=== PATIENT | male | born 1970 | race Two or more races ===

== ENCOUNTER 2017-04-14 23:34 | Inpatient (IN) | payer MEDICAID ==
[~2017-04-14] VITALS: Ht 165.1 cm; Wt 54.5 kg
[~2017-04-14 23:34] MED LIST: LISI-600 PO
[2017-04-15] MEDS ORDERED: albuterol 2.5 MG/3 ML nebule NEB ONE (01:20)
[2017-04-15] MEDS ORDERED: methylPREDNISolone sod succ 125mg/2ml vial IV ONE (01:20)
[2017-04-15 01:46] LABS: BASOPHILS # (AUTO) 0.1 X10'3 (0-0.2); BASOPHILS % (AUTO) 1.4 % (0-1); EOSINOPHILS # (AUTO) 0.1 X10'3 (0-0.9); EOSINOPHILS % (AUTO) 1.3 % (0-6); HEMATOCRIT 35.5 % (42.0-52.0); HEMOGLOBIN 12.4 g/dl (14.0-17.9); LYMPHOCYTES # (AUTO) 1.9 X10'3 (1.1-4.8); LYMPHOCYTES % (AUTO) 36.6 % (21-51); MEAN CORPUSCULAR HEMOGLOBIN 31.7 PG (27.0-31.0); MEAN CORPUSCULAR HGB CONC 34.8 % (33.0-36.5); MEAN CORPUSCULAR VOLUME 91.2 FL (78-98); MEAN PLATELET VOLUME 7.5 FL (7.4-10.4); MONOCYTES # (AUTO) 0.6 X10'3 (0-0.9); MONOCYTES % (AUTO) 11.1 % (2-12); NEUTROPHILS # (AUTO) 2.6 X10'3 (1.8-7.7); NEUTROPHILS % (AUTO) 49.6 % (42-75); PLATELET COUNT 273 X10'3 (140-440); RED CELL DISTRIBUTION WIDTH 14.2 % (11.5-14.5); WHITE BLOOD COUNT 5.3 X10'3 (4.5-11.0)
[2017-04-15 02:00] LABS: ALANINE AMINOTRANSFERASE 122 U/L (12-78); ALBUMIN 3.1 G/DL (3.4-5.0); ALBUMIN/GLOBULIN RATIO 0.8 (1.1-1.5); ALKALINE PHOSPHATASE 124 IU/L (46-116); ANION GAP 11 (8-16); ASPARTATE AMINO TRANSFERASE 170 U/L (10-37); BILIRUBIN,TOTAL 1.2 MG/DL (0.1-1.0); BLOOD UREA NITROGEN 21 MG/DL (7-18); BUN/CREATININE RATIO 22.1 (5.4-32.0); CALCIUM 8.3 MG/DL (8.5-10.1); CHLORIDE 104 MMOL/L (99-107); CREATININE 0.95 MG/DL (0.60-1.10); GLUCOSE 89 MG/DL (70-104); POTASSIUM 3.7 MMOL/L (3.5-5.1); SODIUM 138 MMOL/L (135-145); TOTAL CARBON DIOXIDE 22.7 MMOL/L (24-32); TOTAL PROTEIN 7.1 G/DL (6.4-8.2); eGFR 86 ML/MIN
[2017-04-15] MEDS ORDERED: cefTRIAXone 1g/NS 100ml IVPB 100 ML IV ONE (02:15)
[2017-04-15] MEDS ORDERED: mag hydrox/Alum hydrox/simeth 30ml oral suspension PO PRN (02:20)
[2017-04-15] MEDS ORDERED: bisacodyl 10mg suppository rectal RC PRN (02:20)
[2017-04-15] MEDS ORDERED: magnesium hydroxide 30ml (MOM) UD suspension PO PRN (02:20)
[2017-04-15] MEDS ORDERED: diphenhydrAMINE 50 mg/ml inj IV PRN (02:20)
[2017-04-15] MEDS ORDERED: ondansetron/PF 4mg/2ml inj IV PRN (02:20)
[2017-04-15] MEDS ORDERED: metoclopramide 5 mg/ml inj IV PRN (02:20)
[2017-04-15] MEDS ORDERED: HYDROcodone/acetaminophen 10/325mg tab PO PRN (02:20)
[2017-04-15] MEDS ORDERED: acetaminophen 325mg tablet PO PRN ×2 (02:20)
[2017-04-15] MEDS ORDERED: morphine 2 MG/ML inj. syringe IV PRN ×2 (02:20)
[2017-04-15] MEDS ORDERED: acetaminophen 650mg rectal suppository RC PRN (02:20)
[2017-04-15] MEDS ORDERED: diphenhydrAMINE 25mg capsule PO PRN (02:20)
[2017-04-15] MEDS ORDERED: azithromycin 250mg tablet PO SCH (02:38)
[2017-04-15] MEDS: normal saline 1000ml 1,000 ML IV SCH ×2 (02:49→13:14)
[2017-04-15 02:55] LABS: INR 1.1 INR; PARTIAL THROMBOPLASTIN TIME 28 SECONDS (22-32); PROTHROMBIN TIME 11.4 SECONDS (9.0-12.0)
[2017-04-15] MEDS: cefTRIAXone 1g/NS 100ml IVPB 100 ML IV SCH ×3 (02:58→20:01)
[2017-04-15 03:04] LABS: PHOSPHORUS 3.7 MG/DL (2.3-4.5)
[2017-04-15] MEDS ORDERED: AMLO-94 PO (03:44)
[2017-04-15 03:46] LABS: URINE AMPHETAMINE SCREEN POSITIVE (Neg); URINE BARBITUATE SCREEN NEGATIVE (Neg); URINE BENZODIAZEPINES SCREEN NEGATIVE (Neg); URINE CANNABINOID SCREEN POSITIVE (Neg); URINE COCAINE SCREEN NEGATIVE (Neg); URINE METHADONE SCREEN NEGATIVE (Neg); URINE OPIATE SCREEN NEGATIVE (Neg); URINE PHENCYCLIDINE SCREEN NEGATIVE (Neg)
[2017-04-15] MEDS ORDERED: AMLO2.5T2 PO (03:47)
[2017-04-15] MEDS ORDERED: lactobacillus rhamnosus 10,000 MMU CELLS/CAPSULE PO SCH (07:30)
[2017-04-15] MEDS ORDERED: azithromycin/NS 500mg/250ml 250 ML IV SCH (08:00)
[2017-04-15 09:00] VITALS: BP 167/111
[2017-04-15] MEDS: heparin, porcine 5000 units/ml vial SQ SCH ×2 (09:51→20:08)
[2017-04-15] MEDS: docusate sod 100mg capsule PO SCH ×2 (09:52→20:08)
[2017-04-15] MEDS: pantoprazole 40mg Tablet.DR PO SCH (09:52)
[2017-04-15] MEDS: lactobacillus rhamnosus 10,000 MMU CELLS/CAPSULE PO SCH ×2 (09:52→16:33)
[2017-04-15] MEDS: lisinopril 20mg tablet PO SCH (09:52)
[2017-04-15] MEDS: HYDROcodone/acetaminophen 5mg/325mg tablet PO PRN ×2 (10:00→16:33)
[2017-04-15] MEDS ORDERED: pneumococcal 23-VAL P-sac vacc 25 mcg/0.5ml vial IMVAC ONE (14:15)
[2017-04-15 18:00] VITALS: BP_SYST 164; BP_SYST 191; BP_DIAS 107; BP_DIAS 84
[2017-04-15] MEDS ORDERED: amLODIPine 5mg tablet PO ONE (18:20)
[2017-04-15] MEDS ORDERED: hydrALAZINE 20mg/ml inj. IV PRN (18:20)
[2017-04-15] MEDS ORDERED: azithromycin/NS 500mg/250ml 250 ML IV ONE (19:00)
[2017-04-15] MEDS ORDERED: temazepam 15mg capsule PO PRN (21:00)
[2017-04-15 22:00] VITALS: BP 138/98
[2017-04-16] MEDS ORDERED: albuterol 2.5 MG/3 ML nebule ONE (00:30)
[2017-04-16] MEDS: albuterol 2.5 MG/3 ML nebule NEB PRN ×2 (00:33→14:23)
[2017-04-16] MEDS: normal saline 1000ml 1,000 ML IV SCH ×4 (00:45→23:57)
[2017-04-16 05:33] LABS: BASOPHILS # (AUTO) 0.1 X10'3 (0-0.2); BASOPHILS % (AUTO) 1.6 % (0-1); EOSINOPHILS # (AUTO) 0.1 X10'3 (0-0.9); EOSINOPHILS % (AUTO) 1.2 % (0-6); HEMATOCRIT 34.7 % (42.0-52.0); HEMOGLOBIN 12.1 g/dl (14.0-17.9); LYMPHOCYTES # (AUTO) 1.8 X10'3 (1.1-4.8); LYMPHOCYTES % (AUTO) 29.6 % (21-51); MEAN CORPUSCULAR HEMOGLOBIN 31.7 PG (27.0-31.0); MEAN CORPUSCULAR HGB CONC 34.8 % (33.0-36.5); MEAN CORPUSCULAR VOLUME 91.3 FL (78-98); MEAN PLATELET VOLUME 7.5 FL (7.4-10.4); MONOCYTES # (AUTO) 0.7 X10'3 (0-0.9); MONOCYTES % (AUTO) 11.4 % (2-12); NEUTROPHILS # (AUTO) 3.5 X10'3 (1.8-7.7); NEUTROPHILS % (AUTO) 56.2 % (42-75); PLATELET COUNT 251 X10'3 (140-440); RED CELL DISTRIBUTION WIDTH 14.9 % (11.5-14.5); WHITE BLOOD COUNT 6.2 X10'3 (4.5-11.0)
[2017-04-16] MEDS: HYDROcodone/acetaminophen 5mg/325mg tablet PO PRN ×3 (05:34→16:36)
[2017-04-16 06:00] VITALS: BP 160/103
[2017-04-16 06:26] LABS: ALANINE AMINOTRANSFERASE 87 U/L (12-78); ALBUMIN 3.1 G/DL (3.4-5.0); ALBUMIN/GLOBULIN RATIO 0.8 (1.1-1.5); ALKALINE PHOSPHATASE 102 IU/L (46-116); ANION GAP 10 (8-16); ASPARTATE AMINO TRANSFERASE 73 U/L (10-37); BILIRUBIN,TOTAL 0.8 MG/DL (0.1-1.0); BLOOD UREA NITROGEN 19 MG/DL (7-18); BUN/CREATININE RATIO 17.9 (5.4-32.0); CALCIUM 8.4 MG/DL (8.5-10.1); CHLORIDE 106 MMOL/L (99-107); CREATININE 1.06 MG/DL (0.60-1.10); GLUCOSE 88 MG/DL (70-104); POTASSIUM 3.8 MMOL/L (3.5-5.1); SODIUM 139 MMOL/L (135-145); eGFR 76 ML/MIN
[2017-04-16] MEDS ORDERED: amLODIPine 5mg tablet PO SCH (08:00)
[2017-04-16] MEDS: docusate sod 100mg capsule PO SCH ×2 (08:00→19:55)
[2017-04-16] MEDS: lactobacillus rhamnosus 10,000 MMU CELLS/CAPSULE PO SCH ×2 (08:13→16:34)
[2017-04-16] MEDS: pantoprazole 40mg Tablet.DR PO SCH (08:14)
[2017-04-16] MEDS: lisinopril 20mg tablet PO SCH (08:14)
[2017-04-16] MEDS: heparin, porcine 5000 units/ml vial SQ SCH ×2 (08:14→19:55)
[2017-04-16] MEDS: cefTRIAXone 1g/NS 100ml IVPB 100 ML IV SCH ×2 (08:15→19:55)
[2017-04-16] MEDS: amLODIPine 5mg tablet PO SCH (08:39)
[2017-04-16 10:38] VITALS: BP 162/104
[2017-04-16 11:00] VITALS: BP 155/103
[2017-04-16 11:45] VITALS: BP 151/101
[2017-04-16 18:00] VITALS: BP 151/101
[2017-04-16] MEDS: AZITHROMYCIN 500 MG in NS 250ml IV.SOLN IV SCH (20:46)
[2017-04-16 22:00] VITALS: BP 125/88
[2017-04-17 05:00] VITALS: BP 151/100
[2017-04-17 05:20] LABS: BASOPHILS # (AUTO) 0.1 X10'3 (0-0.2); BASOPHILS % (AUTO) 1.3 % (0-1); EOSINOPHILS # (AUTO) 0.2 X10'3 (0-0.9); EOSINOPHILS % (AUTO) 2.7 % (0-6); HEMATOCRIT 36.7 % (42.0-52.0); HEMOGLOBIN 12.7 g/dl (14.0-17.9); LYMPHOCYTES # (AUTO) 1.9 X10'3 (1.1-4.8); LYMPHOCYTES % (AUTO) 33.2 % (21-51); MEAN CORPUSCULAR HEMOGLOBIN 31.9 PG (27.0-31.0); MEAN CORPUSCULAR HGB CONC 34.6 % (33.0-36.5); MEAN CORPUSCULAR VOLUME 92.2 FL (78-98); MEAN PLATELET VOLUME 7.6 FL (7.4-10.4); MONOCYTES # (AUTO) 0.6 X10'3 (0-0.9); MONOCYTES % (AUTO) 9.8 % (2-12); NEUTROPHILS # (AUTO) 3.1 X10'3 (1.8-7.7); PLATELET COUNT 257 X10'3 (140-440); RED BLOOD COUNT 3.98 X10'6 (4.70-6.10); WHITE BLOOD COUNT 5.9 X10'3 (4.5-11.0)
[2017-04-17 06:02] LABS: ALANINE AMINOTRANSFERASE 85 U/L (12-78); ALBUMIN/GLOBULIN RATIO 0.7 (1.1-1.5); ALKALINE PHOSPHATASE 101 IU/L (46-116); ANION GAP 8 (8-16); ASPARTATE AMINO TRANSFERASE 57 U/L (10-37); BILIRUBIN,TOTAL 0.5 MG/DL (0.1-1.0); BLOOD UREA NITROGEN 20 MG/DL (7-18); BUN/CREATININE RATIO 18.3 (5.4-32.0); CALCIUM 8.5 MG/DL (8.5-10.1); CHLORIDE 103 MMOL/L (99-107); CREATININE 1.09 MG/DL (0.60-1.10); GLUCOSE 85 MG/DL (70-104); POTASSIUM 4.1 MMOL/L (3.5-5.1); SODIUM 138 MMOL/L (135-145); TOTAL CARBON DIOXIDE 26.8 MMOL/L (24-32); TOTAL PROTEIN 7.1 G/DL (6.4-8.2); eGFR 73 ML/MIN
[2017-04-17] MEDS ORDERED: predniSONE 20 mg tablet PO SCH (08:00)
[2017-04-17] MEDS ORDERED: cefTRIAXone 1g/NS 100ml IVPB 100 ML IV SCH (08:00)
[2017-04-17] MEDS: lactobacillus rhamnosus 10,000 MMU CELLS/CAPSULE PO SCH (08:17)
[2017-04-17] MEDS: pantoprazole 40mg Tablet.DR PO SCH (08:17)
[2017-04-17] MEDS: docusate sod 100mg capsule PO SCH (08:17)
[2017-04-17] MEDS: normal saline 1000ml 1,000 ML IV SCH (08:17)
[2017-04-17] MEDS: amLODIPine 5mg tablet PO SCH (08:18)
[2017-04-17] MEDS: lisinopril 20mg tablet PO SCH (08:18)
[2017-04-17] MEDS: heparin, porcine 5000 units/ml vial SQ SCH (08:19)
[2017-04-17] MEDS: AZITHROMYCIN 500 MG in NS 250ml IV.SOLN IV SCH (08:19)
[2017-04-17 08:25] VITALS: BP 146/101
[2017-04-17] MEDS: HYDROcodone/acetaminophen 5mg/325mg tablet PO PRN (08:33)
[2017-04-17 10:00] VITALS: BP 154/97
[2017-04-17] MEDS ORDERED: AMLO2.5T2 PO (12:48)
[2017-04-17] MEDS ORDERED: LISI-600 PO (12:48)
[2017-04-17] MEDS ORDERED: AMLO5TAB16 PO ×2 (12:50→13:00)
[2017-04-17] MEDS ORDERED: AZIT500T5 PO (12:55)
[2017-04-17] MEDS ORDERED: CARV3.1289 PO (12:55)
[2017-04-17] MEDS ORDERED: CEFU250T95 PO (13:00)
[2017-04-17] MEDS ORDERED: AZI25OT PO (13:00)
[2017-04-17] MEDS ORDERED: cefuroxime axetil 250mg tablet PO SCH (20:00)
[2017-04-18] MEDS ORDERED: azithromycin 250mg tablet PO SCH (08:00)
== END 2017-04-17 15:10 | disposition home or self-care (01) | DRG 894 ==
LOC: ER 23:34 → ED HOLD 04-15 02:20 → ORTHO 4S 04-15 09:05
PROVIDERS: ADMIT Family Medicine; ATTEND Internal Medicine
DX: J18.9 Pneumonia, unspecified organism (principal); B20 Human immunodeficiency virus [HIV] disease; K73.9 Chronic hepatitis, unspecified; I10 Essential (primary) hypertension; F15.129 Other stimulant abuse with intoxication, unspecified; I16.1 Hypertensive emergency; Z59.0 Homelessness; Z79.899 Other long term (current) drug therapy; Z87.891 Personal history of nicotine dependence; Z88.6 Allergy status to analgesic agent
CPT/HCPCS: 36415; 71045; 71046; 80053; 80305; 83605; 83735; 83880; 84100; 85025; 85610; 85730; 87040; 87070; 90732; 93005; 94640; 94760; 96374; 99285; J0360; J0456; J0696; J1644; J2405; J2930; J7030; J7512; Q0163

== ENCOUNTER 2017-05-09 22:27 | Emergency (ER) | payer MEDICAID ==
[~2017-05-09] VITALS: Ht 165.1 cm; Wt 48.6 kg
[~2017-05-09 22:27] MED LIST changes: +AMLO2.5T2 PO; +AMLO5TAB16 PO; +AZI25OT PO; +AZIT500T5 PO; +CARV3.1289 PO; +CEFU250T95 PO
[2017-05-09] MEDS ORDERED: ipratropium/albuterol 3ml nebule NEB ONE (23:10)
[2017-05-10] MEDS ORDERED: ALBU8HFA PO (00:06)
[2017-05-10 00:18] VITALS: BP 120/80
== END 2017-05-10 00:20 | disposition home or self-care (01) ==
LOC: ER 22:28
DX: F41.9 Anxiety disorder, unspecified (principal); R06.02 Shortness of breath; I10 Essential (primary) hypertension; Z56.0 Unemployment, unspecified; Z59.0 Homelessness; Z88.6 Allergy status to analgesic agent; Z79.899 Other long term (current) drug therapy
CPT/HCPCS: 71046; 94640; 94760; 99284